=== PATIENT | female | born 1985 | race Caucasian/White ===

== ENCOUNTER 2017-04-27 17:40 | Emergency (ER) | payer SELFPAY, OTHER | END 2017-04-27 21:15 | disposition home or self-care (01) | LOC: FTE 17:40 | DX: J06.9 Acute upper respiratory infection, unspecified (principal); F17.210 Nicotine dependence, cigarettes, uncomplicated | CPT/HCPCS: 99284 ==

== ENCOUNTER 2017-06-08 22:16 | Emergency (ER) | payer OTHER ==
[2017-06-09 00:15] LABS: URINE BLOOD (Dip) POC 3+ (NEGATIVE); URINE GLUCOSE (Dip) POC Negative (NEGATIVE); URINE KETONES (Dip) POC Negative (NEGATIVE); URINE LEUKOCYTE EST (Dip) POC 1+ (NEGATIVE); URINE NITRITE (Dip) POC Negative (NEGATIVE); URINE TOTAL PROTEIN POC 2+ (NEGATIVE)
[2017-06-09] MEDS: KETOROLAC 60 MG INJ IM (00:39)
[2017-06-09] MEDS: PHENAZOPYRIDINE 100 MG TAB PO (00:39)
[2017-06-09] MEDS: ONDANSETRON (ODT) 4 MG TAB ODT (00:39)
[2017-06-09] MEDS: CEFTRIAXONE 1 GM INJ IM (00:40)
== END 2017-06-09 00:59 | disposition home or self-care (01) ==
LOC: FTE 22:16
DX: N30.01 Acute cystitis with hematuria (principal)
CPT/HCPCS: 81003; 96372; 99284-25

== ENCOUNTER 2018-02-22 13:55 | Emergency (ER) | payer OTHER ==
[2018-02-22] MEDS: FAMOTIDINE 20 MG INJ IV (15:39)
[2018-02-22] MEDS: ONDANSETRON 4 MG INJ IV (15:39)
[2018-02-22 15:44] LABS: ADD MAN DIFF? NO
[2018-02-22] MEDS: SOD CHLORIDE 0.9% 1,000 ML IV (15:45)
[2018-02-22 15:53] LABS: WHITE BLOOD COUNT 5.3 10^3/ul (4.8-10.8)
[2018-02-22 15:53] LABS: ABNORMAL IP MESSAGE 1; HEMATOCRIT 42.2 % (37.0-47.0); HEMOGLOBIN 13.9 g/dl (12.0-16.0); LYMPHOCYTES # 0.6 10^3/ul (0.8-2.9); LYMPHOCYTES % 10.8 % (15.0-51.0); MEAN CORPUSCULAR HEMOGLOBIN 28.8 pg (29.0-33.0); MEAN CORPUSCULAR HGB CONC 32.9 g/dl (32.0-37.0); MEAN CORPUSCULAR VOLUME 87.6 fl (82.0-101.0); MEAN PLATELET VOLUME 11.7 fl (7.4-10.4); MONOCYTE # 0.2 10^3/ul (0.3-0.9); MONOCYTES % 3.2 % (0.0-11.0); NEUTROPHIL # 4.5 10^3/ul (1.6-7.5); NEUTROPHILS % 85.6 % (39.0-77.0); PLATELET COUNT 180 10^3/UL (140-415); RED BLOOD COUNT 4.82 10^6/ul (4.20-5.40); RED CELL DISTRIBUTION WIDTH 13.3 % (11.5-14.5)
[2018-02-22 15:55] LABS: POSITIVE DIFF @See below
[2018-02-22 16:11] LABS: ADD UMIC YES; UR ASCORBIC ACID NEGATIVE (NEGATIVE); UR BACTERIA FEW /HPF (NONE SEEN); UR BILIRUBIN (Dip) NEGATIVE (NEGATIVE); UR BLOOD (Dip) 3+ mg/dL (NEGATIVE); UR CLARITY CLOUDY (CLEAR); UR COLOR YELLOW (YELLOW); UR GLUCOSE (Dip) NEGATIVE (NEGATIVE); UR KETONES (Dip) 1+ mg/dL (NEGATIVE); UR LEUKOCYTE ESTERASE (Dip) NEGATIVE Leu/ul (NEGATIVE); UR MUCUS FEW /HPF (NONE SEEN); UR NITRITE (Dip) NEGATIVE (NEGATIVE); UR RBC > 182 /HPF (0-5); UR SPECIFIC GRAVITY (Dip) 1.023 (1.003-1.030); UR TOTAL PROTEIN (Dip) 2+ mg/dl (NEGATIVE); UR UROBILINOGEN (Dip) NEGATIVE (NEGATIVE); UR WBC 18 /HPF (0-5)
[2018-02-22 16:19] LABS: ALANINE AMINOTRANSFERASE 59 IU/L (13-69); ALBUMIN 4.8 g/dl (3.3-4.9); ALKALINE PHOSPHATASE 108 IU/L (42-121); ANION GAP 14 (5-13); ASPARTATE AMINO TRANSFERASE 60 IU/L (15-46); BILIRUBIN,INDIRECT 0.5 mg/dl (0-1.1); BILIRUBIN,TOTAL 0.5 mg/dl (0.2-1.3); BLOOD UREA NITROGEN 5 mg/dl (7-20); CALCIUM 9.3 mg/dl (8.4-10.2); CARBON DIOXIDE 24 mmol/L (21-31); CHLORIDE 105 mmol/L (97-110); CREATININE 0.52 mg/dl (0.44-1.00); Estimated GFR > 60 mL/min (>60); GLUCOSE 121 mg/dl (70-220); LIPASE 32 U/L (23-300); POTASSIUM 3.7 mmol/L (3.5-5.1); SODIUM 143 mmol/L (135-144); TOTAL PROTEIN 8.8 g/dl (6.1-8.1)
[2018-02-22 16:32] LABS: MONOTEST Negative (NEG)
[2018-02-22] MEDS: ACETAMINOPHEN 325 MG TAB PO ×2 (16:39→16:40)
[2018-02-22] MEDS: ACETAMINOPHEN 160 MG/5ML CUP PO (16:48)
[2018-02-22] MEDS: LIDOCAINE/MYLANTA 40 ML BTL PO (17:50)
[2018-02-22] MEDS: HYDROCODONE/APAP (5/325) TAB PO (19:01)
== END 2018-02-22 19:28 | disposition home or self-care (01) ==
LOC: FTE 19:28
DX: R10.13 Epigastric pain (principal); F17.210 Nicotine dependence, cigarettes, uncomplicated
CPT/HCPCS: 36415; 74018; 80053; 81001; 81025; 83690; 85025; 86308; 87400; 96361; 96374; 96375; 99284-25